=== PATIENT | female | born 1970 | race Caucasian/White ===

== ENCOUNTER 2025-07-20 16:36 | Emergency (ER) | payer SELFPAY ==
[2025-07-20 16:39] VITALS: BP 163/82
[2025-07-20 17:18] LABS: Urine Character Clear (Clear)
[2025-07-20 17:29] LABS: Hematocrit 35.4 % (37.0-47.0); Hemoglobin 11.8 g/dL (12.0-16.0); Mean Corp Hgb Conc. 33.3 g/dL (33.0-37.0); Mean Corpuscular Volume 81.8 fL (81.0-99.0); Nucleated Red Blood Cells % 0 %; Platelet Count 144 10^3/uL (130-400); Red Cell Dist. Width 13.8 % (11.5-14.5)
[2025-07-20 17:39] LABS: Urine Red Blood Cell 0-2 /HPF (0-2); Urine Squamous Cell >30 /LPF (Few)
[2025-07-20 17:56] LABS: ALT (SGPT) 17 U/L (0-35); AST (SGOT) 21 U/L (14-36); Albumin 4.4 g/dl (3.5-5.0); Alkaline Phosphatase 104 U/L (38-126); Blood Urea Nitrogen 17 mg/dl (7-17); Calcium 9.7 mg/dl (8.4-10.2); Carbon Dioxide 27 mmol/L (22-30); Chloride 105 mmol/L (98-107); Glucose 198 mg/dl (70-99); Lipase 140 U/L (23-300); Potassium 4.3 mmol/L (3.5-5.1); Sodium 139 mmol/L (135-145); Total Protein 7.3 g/dl (6.3-8.2); eGFR > 60.00
--- NOTE | 2025-07-20 18:46 | ED.GENMED ---
History of Present Illness
General
Chief Complaint: Flank Pain
Source: patient
Time Seen by Provider: 07/20/25 18:23
History of Present Illness
History of Present Illness:
54-year-old female with past medical history of hypertension, hyperlipidemia, insulin-dependent diabetes, pancreatic tumor presenting to the emergency department for evaluation of left-sided flank pain (triage note say right side) since this past
described to be a constant dull ache with intermittent sharper bursts of pain, pain radiating intermittently towards the left lower abdomen and intermittently during the 4 days has had chills and a tactile fever, today temp was 99.5 but did
take Motrin prior to arrival to the ER around 4 PM. Patient endorses nausea but no vomiting as well as dysuria and urinary urgency. Currently not on any antibiotics. No other presenting symptoms.
Past History
Past History
ED Past Medical History: HTN, Hypercholesterolemia and IDDM
ED Past Surgical History: and Gynecological
Social History
Tobacco: Non-smoker
Alcohol: None
Drug: None
Personal:
Living: with family
Review of Systems
Review of Systems
All Other Systems: ROS reviewed and negative except as documented in HPI and ROS
Phy Exam
Physical Exam
Physical Exam:
GENERAL: Alert , in no apparent distress
EYE: clear conjunctiva b/l
HEAD: NCAT
ENT: o/p clr, mmm.
CARDIAC: Regular rate and rhythm .
LUNGS: Clear breath sounds bilaterally, no acute respiratory distress, no wheezes/rales/rhonchi
ABDOMEN: Soft, without focal tenderness, no r/g, mild left CVA tenderness
NEUROLOGICAL: Alert and oriented
SKIN: Warm and dry, skin intact.
MUSCULOSKELETAL: No edema, well perfused.
PSYCH: Normal and appropriate interaction.
Scores
Heart Failure Risk
Heart Failure Risk Score: Not Applicable
Heart Score for Chest Pain Patients
STEMI patient?: Not applicable
Withdrawal Assessment of Alcohol
Withdrawal Assessment Completed?: Not applicable
Course
Orders/Labs/Results
Orders:
Orders
07/20/25 16:54
Complete Blood Count/With Diff Urgent
Comprehensive Metabolic Panel Urgent
Lipase Urgent
Urinalysis Reflex To Culture Urgent
Date Specimen was Collected: 07/20/25
Time Specimen was Collected: 16:43
Urine Microscopic Reflex Cult Urgent
Urine Culture Urgent
SHER Source: U
Specimen Description:
Date Specimen was Collected: 07/20/25
Time Specimen was Collected: 16:43
07/20/25 18:41
0.9% Sodium Chloride 1000 ml [Nss] 1,000 ml IV BOLUS
Ondansetron Injectable [Zofran] 4 mg IV NOW STA
07/20/25 18:42
CT Abd/pel Without Iv Or Oral Urgent
Comment:
Reason For Exam: flank pain, hx stones
07/20/25 18:58
CefTRIAXone [Rocephin] 1,000 mg IV NOW STA
Abnormal Lab Results
07/20/25
16:54
Hgb 11.8 L g/dL
(12.0-16.0)
Hct 35.4 L %
(37.0-47.0)
MPV 11.0 H fL
(7.4-10.4)
Abs Immat Gran (auto) 0.1 H 10^3/uL
(0-0.05)
Absolute Neuts (auto) 8.8 H 10^3/uL
(1.4-6.5)
Absolute Lymphs (auto) 1.0 L 10^3/uL
(1.2-3.4)
Immature Gran % 0.6 H %
(0-0.5)
Neutrophils % 84.5 H %
(42.2-75.2)
Lymphocytes % 9.1 L %
(20.5-51.1)
Glucose 198 H mg/dl
(70-99)
Ur Occult Blood Reflex 1+ A
(Negative)
Leukocyte Esterase Rfl 2+ A
(Negative)
Urine WBC (Reflex) 11-15 A /HPF
(0-5)
Urine Bacteria (Reflex) Moderate A
(Negative)
Urine Glucose 1+ A
(Negative)
Urine Albumin (Reflex) 1+ A
(Neg - Trace)
07/20/25 16:54
07/20/25 16:54
Vital Signs
Initial and Last Documented VS:
Initial Vital Signs
Temp Pulse Resp BP Pulse Ox
99.5 F 91 19 163/82 97
07/20/25 16:39 07/20/25 16:39 07/20/25 16:39 07/20/25 16:39 07/20/25 16:39
Last Documented Vital Signs
Temp Pulse Resp BP Pulse Ox
99.5 F 82 18 113/86 95
07/20/25 16:39 07/20/25 20:05 07/20/25 20:05 07/20/25 20:05 07/20/25 20:05
MDM/Problems Addressed
Differential Diagnosis Includes:
Pyelonephritis
Cystitis
Renal/ureteral colic
Kidney stone
Shingles
Musculoskeletal back pain
Viral syndrome
MDM/Problems Addressed:
54-year-old female presenting to the ER for evaluation of left-sided flank pain, tactile fevers, chills and nausea. Took Motrin prior to arrival, afebrile here. Labs and urine initiated in triage show no leukocytosis, unremarkable chemistry
outside of mild hyperglycemia as well as urinalysis showing 1+ microscopic hematuria, 2+ leukocytes and 11-15 WBCs however there is greater than 30 squamous cells and moderate bacteria signifying some degree of contamination. I do suspect that a
urinary tract infection is likely given patient is also experiencing dysuria and urgency. Given that she does have a history of kidney stones and her flank pain will still obtain a noncontrast CT scan to further evaluate. Disposition pending.
Patient declining anything for pain but will treat nausea with Zofran and IV fluids.
*Radiology
Radiology exam reviewed: radiology read reviewed
*Pulse Oximetry
SaO2: 97
Oxygen Mode of Delivery: Room air
Patient hypoxic: no
*Critical Care Note
Total Time (30-74mins, 75-104mins- exclusive of procedures): Not Applicable
Patient Management
Escalation/DeEscalation of care consider admission/obs:
Patient CT scan without any acute or emergent pathologies. She was treated with a dose of Rocephin for suspected urinary tract infection/possible early pyelonephritis. We did discuss inpatient versus outpatient treatment and ultimately patient
preferred to be discharged home. Prescription for cefpodoxime sent to pharmacy. Patient advised on return precautions to the ER but otherwise stable for discharge home.
ED Attending Note
-
Portions of this chart may have been created with voice recognition software.� Occasional wrong word or��sound alike� substitutions may have occurred due to the inherent limitations of voice recognition software.
Discharge Plan
Departure
Patient Disposition: Home (Routine Discharge)
Date of Disposition: 07/20/25
Time of Disposition: 19:54
Patient with high blood pressure during this ER visit?: Yes
Discharge Problem:
Urinary tract infection
Instructions: Urinary tract infection in adults - ED (DC)
Prescriptions:
New
cefpodoxime 200 mg tablet
200 mg PO BID 10 Days Qty: 20 0RF
Referrals:
Erin Markham CRNP [Family Provider, General]
Stand Alone Forms: Return to Work
Interventions
Interventions:
*Risk Screen - Suicide Last Done: 07/20/25 16:42
*General Assessment Last Done: 07/20/25 16:42
*Neglect/Abuse Screening Last Done: 07/20/25 16:42
*ED COVID-19 Vaccine History Last Done: 07/20/25 16:42
*ED Influenza Vaccine History Last Done: 07/20/25 16:42
*Nursing Disposition Last Done: 07/20/25 20:46
VI-Maepsj-Qxnofbxtnr Assessment Last Done: 07/20/25 18:30
ED-Female Genitourinary Assessment Last Done: 07/20/25 18:30
Discharge Date and Time
Discharge Date/Time: 07/20/25 20:46
Print Language: YEMENI
[2025-07-20] MEDS: NSS 1000 IV (19:15)
[2025-07-20] MEDS: ZOFRAN 4 MG IV (19:16)
[2025-07-20] MEDS: ROCEPHIN 1000 MG IV (19:18)
[2025-07-20 20:05] VITALS: BP 113/86
== END 2025-07-20 20:46 | disposition home or self-care (01) ==
LOC: EMR 16:36
PROVIDERS: EMERGENCY PHYSICIAN Emergency Medicine; FAMILY PHYSICIAN Nurse Practitioner Adult Health
DX: N39.0 Urinary tract infection, site not specified (principal); I10 Essential (primary) hypertension; E78.00 Pure hypercholesterolemia, unspecified; E11.65 Type 2 diabetes mellitus with hyperglycemia; Z79.4 Long term (current) use of insulin
CPT/HCPCS: 96374; 96375; 96361; 99284; 74176; 80053; 81003; 81015; 83690; 85025; 87086

== ENCOUNTER 2025-08-07 16:39 | Emergency (ER) | payer OTHER, SELFPAY ==
[2025-08-07 16:41] VITALS: BP 173/93
[2025-08-07 18:00] LABS: Glucose - Point of Care 473 mg/dl (70-99)
[2025-08-07 18:24] VITALS: BMI 43.4
[2025-08-07] MEDS: NSS 1000 IV ×2 (18:28→20:21)
[2025-08-07] MEDS: TORADOL 15 MG IV (18:28)
[2025-08-07 18:48] LABS: Venous Blood Gas B.E. 1.7 mmol/L (-4 to +4); Venous Blood Gas O2 Sat % 80.5 %
[2025-08-07 18:49] LABS: Hematocrit 32.7 % (37.0-47.0); Hemoglobin 11.0 g/dL (12.0-16.0); Mean Corp Hgb Conc. 33.6 g/dL (33.0-37.0); Mean Corpuscular Volume 79.8 fL (81.0-99.0); Nucleated Red Blood Cells % 0 %; Platelet Count 137 10^3/uL (130-400); Red Cell Dist. Width 14.2 % (11.5-14.5)
--- NOTE | 2025-08-07 18:56 | ED.GENMED ---
History of Present Illness
<MOHINDER Carpenter Last Filed: 08/08/25 07:25>
General
Chief Complaint: Fever
Source: patient
Exam Limitations: none
Time Seen by Provider: 08/07/25 17:32
Nursing documentation reviewed up to this point in time: agreed with
History of Present Illness
History of Present Illness:
see MDM
Past History
<MOHINDER Carpenter Last Filed: 08/08/25 07:25>
Past History
ED Past Medical History: HTN, Hypercholesterolemia and IDDM
ED Past Surgical History: and Gynecological
Social History
Tobacco: Non-smoker
Alcohol: None
Drug: None
Personal:
Living: with family
Phy Exam
<MOHINDER Carpenter Last Filed: 08/08/25 07:25>
Physical Exam
Physical Exam:
GENERAL: Alert , in no apparent distress, seems a little foggy; trouble answering
EYE: pupils equal and reactive
NECK: Supple
ENT: o/p clr, mmm.
CARDIAC: Regular rate and rhythm .
LUNGS: Clear breath sounds bilaterally, no acute respiratory distress, no wheezes/rales/rhonchi
ABDOMEN: Soft, without focal tenderness, no r/g, mild L cvat; normal bowel sounds
NEUROLOGICAL: Alert and oriented, slight brain fog; no focal neuro deficits
SKIN: Warm and dry, skin intact.
MUSCULOSKELETAL: No edema, well perfused. neg radha's sign
PSYCH: Normal and appropriate interaction.
Course
<MOHINDER Carpenter Last Filed: 08/08/25 07:25>
Orders/Labs/Results
Orders:
Orders
08/07/25 17:58
CT Abd/Pel (IV only)-DH only Urgent
Comment:
Reason For Exam: L flank pain, chills, 4.4 mm L renal stone
0.9% Sodium Chloride 1000 ml [Nss] 1,000 ml IV BOLUS
Ketorolac [Toradol] 15 mg IV NOW STA
08/07/25 18:36
BHB [B-Hydroxybutyrate] Urgent
Complete Blood Count/With Diff Urgent
Comprehensive Metabolic Panel Urgent
Lactic Acid Urgent
Lipase Urgent
Venous Blood Gas Urgent
%Oxygen/Room Air: 21
Blood Culture Q30M
SHER Source: Blood/Venous
Specimen Description:
Blood Culture Q30M
SHER Source: Blood/Venous
Specimen Description:
08/07/25 19:23
Add On- LAB Urgent
Tests Added?: LIPASE
08/07/25 19:24
Urinalysis Reflex To Culture Urgent
Date Specimen was Collected: 08/07/25
Time Specimen was Collected: 19:23
Urine Microscopic Reflex Cult Urgent
08/07/25 19:57
0.9% Sodium Chloride 1000 ml [Nss] 1,000 ml IV BOLUS
Abnormal Lab Results
08/07/25 08/07/25 08/07/25
17:59 18:36 19:24
RBC 4.10 L 10^6/uL
(4.20-5.40)
Hgb 11.0 L g/dL
(12.0-16.0)
Hct 32.7 L %
(37.0-47.0)
MCV 79.8 L fL
(81.0-99.0)
MCH 26.8 L pg
(27.0-31.0)
MPV 11.9 H fL
(7.4-10.4)
VBG pCO2 54 H mmHg
(35-48)
VBG HCO3 28.5 H mmol/L
(22-27)
Sodium 133 L mmol/L
(135-145)
BUN 29 H mg/dl
(7-17)
Glucose 438 H mg/dl
(70-99)
Ur Occult Blood Reflex 1+ A
(Negative)
Urine Bacteria (Reflex) Few A
(Negative)
Urine Glucose 4+ A
(Negative)
Urine Albumin (Reflex) 1+ A
(Neg - Trace)
B-Hydroxybutyrate 0.60 H mmol/L
(0.02-0.27)
POC Glucose 473 H* mg/dl
(70-99)
08/07/25
21:50
RBC
Hgb
Hct
MCV
MCH
MPV
VBG pCO2
VBG HCO3
Sodium
BUN
Glucose
Ur Occult Blood Reflex
Urine Bacteria (Reflex)
Urine Glucose
Urine Albumin (Reflex)
B-Hydroxybutyrate
POC Glucose 439 H mg/dl
(70-99)
08/07/25 18:36
08/07/25 18:36
Vital Signs
Initial and Last Documented VS:
Initial Vital Signs
Temp Pulse Resp BP Pulse Ox
36.7 C 94 20 173/93 96
08/07/25 16:41 08/07/25 16:41 08/07/25 16:41 08/07/25 16:41 08/07/25 16:41
Last Documented Vital Signs
Temp Pulse Resp BP Pulse Ox
36.7 C 80 18 118/78 96
08/07/25 16:41 08/07/25 22:00 08/07/25 22:00 08/07/25 22:00 08/07/25 22:00
<Gely Calderon NP - Last Filed: 08/07/25 22:42>
Orders/Labs/Results
Orders:
Orders
08/07/25 17:58
CT Abd/Pel (IV only)-DH only Urgent
Comment:
Reason For Exam: L flank pain, chills, 4.4 mm L renal stone
0.9% Sodium Chloride 1000 ml [Nss] 1,000 ml IV BOLUS
Ketorolac [Toradol] 15 mg IV NOW STA
08/07/25 18:36
BHB [B-Hydroxybutyrate] Urgent
Complete Blood Count/With Diff Urgent
Comprehensive Metabolic Panel Urgent
Lactic Acid Urgent
Lipase Urgent
Venous Blood Gas Urgent
%Oxygen/Room Air: 21
Blood Culture Q30M
SHER Source: Blood/Venous
Specimen Description:
Blood Culture Q30M
SHER Source: Blood/Venous
Specimen Description:
08/07/25 19:23
Add On- LAB Urgent
Tests Added?: LIPASE
08/07/25 19:24
Urinalysis Reflex To Culture Urgent
Date Specimen was Collected: 08/07/25
Time Specimen was Collected: 19:23
Urine Microscopic Reflex Cult Urgent
08/07/25 19:57
0.9% Sodium Chloride 1000 ml [Nss] 1,000 ml IV BOLUS
Abnormal Lab Results
08/07/25 08/07/25 08/07/25
17:59 18:36 19:24
RBC 4.10 L 10^6/uL
(4.20-5.40)
Hgb 11.0 L g/dL
(12.0-16.0)
Hct 32.7 L %
(37.0-47.0)
MCV 79.8 L fL
(81.0-99.0)
MCH 26.8 L pg
(27.0-31.0)
MPV 11.9 H fL
(7.4-10.4)
VBG pCO2 54 H mmHg
(35-48)
VBG HCO3 28.5 H mmol/L
(22-27)
Sodium 133 L mmol/L
(135-145)
BUN 29 H mg/dl
(7-17)
Glucose 438 H mg/dl
(70-99)
Ur Occult Blood Reflex 1+ A
(Negative)
Urine Bacteria (Reflex) Few A
(Negative)
Urine Glucose 4+ A
(Negative)
Urine Albumin (Reflex) 1+ A
(Neg - Trace)
B-Hydroxybutyrate 0.60 H mmol/L
(0.02-0.27)
POC Glucose 473 H* mg/dl
(70-99)
08/07/25
21:50
RBC
Hgb
Hct
MCV
MCH
MPV
VBG pCO2
VBG HCO3
Sodium
BUN
Glucose
Ur Occult Blood Reflex
Urine Bacteria (Reflex)
Urine Glucose
Urine Albumin (Reflex)
B-Hydroxybutyrate
POC Glucose 439 H mg/dl
(70-99)
08/07/25 18:36
08/07/25 18:36
Vital Signs
Initial and Last Documented VS:
Initial Vital Signs
Temp Pulse Resp BP Pulse Ox
36.7 C 94 20 173/93 96
08/07/25 16:41 08/07/25 16:41 08/07/25 16:41 08/07/25 16:41 08/07/25 16:41
Last Documented Vital Signs
Temp Pulse Resp BP Pulse Ox
36.7 C 80 18 118/78 96
08/07/25 16:41 08/07/25 22:00 08/07/25 22:00 08/07/25 22:00 08/07/25 22:00
<Elyssa Wallace PA-C - Last Filed: 08/08/25 07:25>
MDM/Problems Addressed
Differential Diagnosis Includes:
SEE MDM
MDM/Problems Addressed:
Note:
CHIEF COMPLAINT(S)
Recurrent abdominal and back pain with associated chills and fever.
HISTORY OF PRESENT ILLNESS
The patient is a 54-year-old female IDDM, who presents with complaints of recurrent abdominal and back pain accompanied by chills and fever. The symptoms were first noted at the beginning of July when the patient experienced severe chills and a
mild fever of 99�F, which led her to the emergency department. At that time, she was evaluated for a potential urinary tract infection and was given antibiotics, which partially relieved her symptoms though the chills persisted intermittently. The
patient describes her current pain as originating in the back, distinct from bladder pain, and has been enduring these symptoms for a few days now.
An ultrasound ordered routinely by her manager room (that she sees because of family history of kidney stones, she has never passed a stone herself) recently confirmed the presence of a 4.4 mm stone in the lower pole of the kidney on US 2 days ago.
The patient reports that she has been dealing with these symptoms since her visit in July and feels the chills and possible fever coming on again. She denies any vomiting or significant nausea except when febrile. The patient reports regular
pain but categorizes her pain now as different. The manager room oversees her care for kidney stone prevention and the management of electrolytes.
pt says she feels a little confused
accucheck read HI
PAST MEDICAL AND SURGICAL HISTORY
The patient has a history of recurring urinary tract infections and a history of a section.
CHRONIC MEDICAL CONDITIONS SIGNIFICANTLY AFFECTING CARE
The patient has a history of hypertension, which she mentions is well-controlled with medication. She also reports that her blood sugar is 'not doing that well,' indicating possible diabetes management challenges.
MEDICATIONS
Patient is on medication for blood pressure control.
REVIEW OF SYSTEMS
- Constitutional: Chills; Fever, subjective
- Gastrointestinal: Abdominal pain without nausea
- Genitourinary: History of kidney stones
- Musculoskeletal: Back pain
PHYSICAL EXAM
Nursing notes reviewed and vital signs reviewed.
see above
PROBLEM LIST
Acute Problems:
- Recurrent abdominal pain with chills and fever
- Possible exacerbation of kidney stones presence
Chronic Problems:
- Hypertension
- Possible diabetes or hyperglycemia
PLAN
- Further imaging of the abdomen to clarify the presence of any obstructive pathology or changes since the last ultrasound.
- Evaluation of the patients blood sugar levels for adequate diabetes management. - READ HI
- Close follow-up with nephrology to address kidney stone management and potential prevention.
DIFFERENTIAL DIAGNOSIS
The Differential Diagnosis includes, in no particular order and is not limited to:
1. Kidney stones
2. Urinary tract infection
3. Pyelonephritis
4. Renal colic
5. Gastroenteritis
6. Viral infection
7. Musculoskeletal pain
8. Abdominal aortic aneurysm
9. Pancreatitis
10. Appendicitis
54 y/o IDDM
not wearing her insulin pump currently because her dexcom wasn't working
here with L flank pain and chlils
has h/o outpatient screening US showing 4 mm L renal pole stone 2 day sago
then started with chilsl and pain
no obvious fever
no vomiting
since insulin pump off, her accucheck 400s
AG IS 4, PT IS NOT IN DKA
will give 2 liters fluid
wbc normal
insulin pump back on
will recheck sugar after 2L
pending CT
urine is equivocal
signed out to KELSI paredes.
<Elyssa Wallace PA-C - Last Filed: 08/08/25 07:25>
*Pulse Oximetry
SaO2: 96
Oxygen Mode of Delivery: Room air
<Gely Calderon NP - Last Filed: 08/07/25 22:42>
*Pulse Oximetry
Patient hypoxic: no
*Critical Care Note
Total Time (30-74mins, 75-104mins- exclusive of procedures): Not Applicable
<Gely Calderon NP - Last Filed: 08/07/25 22:42>
Update Note
Update Note:
CT report reviewed. Mural thickening of the bladder suspicious for cystitis. There is no evidence of obstructing ureteral calculus, normal appendix, no evidence of bowel obstruction. Discussed findings with patient. UA results reviewed. Will
wait for culture results. Patient is resting comfortably, in no distress. Will be discharging home, with close follow-up with PCP. She was given instructions on signs and symptoms to return to the emergency department and she is agreeable to this
plan.
ED Attending Note
<Elyssa Wallace PA-C - Last Filed: 08/08/25 07:25>
-
Portions of this chart may have been created with voice recognition software.� Occasional wrong word or��sound alike� substitutions may have occurred due to the inherent limitations of voice recognition software.
Discharge Plan
Departure
Patient Disposition: Home (Routine Discharge)
Date of Disposition: 08/07/25
Time of Disposition: 22:39
Patient with high blood pressure during this ER visit?: No
Condition: Good
Covid-19: Not Applicable
Discharge Problem:
Abdominal pain
Instructions: Abdominal pain in adults - ED (DC)
Prescriptions:
No Action
cefpodoxime 200 mg tablet
200 mg PO BID 10 Days Qty: 20 0RF
Referrals:
Erin Markham CRNP [Family Provider, General] - Follow up in 2-3 days
Stand Alone Forms: Return to Work
Activity Restrictions/Additional Instructions:
Return to the emergency department for any changes in/worsening of your symptoms.
Interventions
Interventions:
*Risk Screen - Suicide Last Done: 08/07/25 23:14
*General Assessment Last Done: 08/07/25 16:41
*Neglect/Abuse Screening Last Done: 08/07/25 23:14
*ED- Fall Risk Assessment Last Done: 08/07/25 18:24
*ED COVID-19 Vaccine History Last Done: 08/07/25 18:24
*ED Influenza Vaccine History Last Done: 08/07/25 18:24
*Nursing Disposition Last Done: 08/07/25 23:14
ED- Neurological Assessment Last Done: 08/07/25 22:07
ED-Skin Assessment Last Done: 08/07/25 22:07
Discharge Date and Time
Discharge Date/Time: 08/07/25 23:15
Print Language: JAPANESE
[2025-08-07 19:10] LABS: ALT (SGPT) 21 U/L (0-35); AST (SGOT) 21 U/L (14-36); Albumin 4.2 g/dl (3.5-5.0); Alkaline Phosphatase 122 U/L (38-126); Blood Urea Nitrogen 29 mg/dl (7-17); Calcium 9.4 mg/dl (8.4-10.2); Carbon Dioxide 29 mmol/L (22-30); Chloride 100 mmol/L (98-107); Estimated Creatinine Clearance 99 ml/min; Glucose 438 mg/dl (70-99); Potassium 4.0 mmol/L (3.5-5.1); Sodium 133 mmol/L (135-145); Total Protein 7.0 g/dl (6.3-8.2); eGFR > 60.00
[2025-08-07 19:41] LABS: Urine Character Clear (Clear)
[2025-08-07 19:43] LABS: Lipase 195 U/L (23-300)
[2025-08-07 19:54] LABS: Urine Red Blood Cell 0-2 /HPF (0-2); Urine Squamous Cell 0-2 /LPF (Few)
[2025-08-07 20:00] VITALS: BP 122/70
[2025-08-07 21:52] LABS: Glucose - Point of Care 439 mg/dl (70-99)
[2025-08-07 22:00] VITALS: BP 118/78
== END 2025-08-07 23:15 | disposition home or self-care (01) ==
LOC: EMR 16:39
PROVIDERS: Physician Assistant; EMERGENCY PHYSICIAN Emergency Medicine; FAMILY PHYSICIAN Nurse Practitioner Adult Health
DX: R10.9 Unspecified abdominal pain (principal); I10 Essential (primary) hypertension; E78.00 Pure hypercholesterolemia, unspecified; E11.9 Type 2 diabetes mellitus without complications; Z87.442 Personal history of urinary calculi; Z79.4 Long term (current) use of insulin
CPT/HCPCS: 99284; 96374; 96361; 74177; 80053; 81003; 81015; 82010; 82805; 82962; 83605; 83690; 85025; 87040; Q9967

== ENCOUNTER 2025-08-11 14:48 | Emergency (ER) | payer OTHER, SELFPAY ==
[2025-08-11 14:59] VITALS: BP 174/97
[2025-08-11 15:41] LABS: Hematocrit 35.7 % (37.0-47.0); Hemoglobin 12.1 g/dL (12.0-16.0); Mean Corp Hgb Conc. 33.9 g/dL (33.0-37.0); Mean Corpuscular Volume 78.3 fL (81.0-99.0); Nucleated Red Blood Cells % 0 %; Platelet Count 168 10^3/uL (130-400); Red Cell Dist. Width 13.9 % (11.5-14.5)
[2025-08-11 15:54] LABS: ALT (SGPT) 20 U/L (0-35); AST (SGOT) 21 U/L (14-36); Albumin 4.8 g/dl (3.5-5.0); Alkaline Phosphatase 126 U/L (38-126); Blood Urea Nitrogen 18 mg/dl (7-17); Calcium 9.6 mg/dl (8.4-10.2); Carbon Dioxide 28 mmol/L (22-30); Chloride 98 mmol/L (98-107); Glucose 390 mg/dl (70-99); Potassium 4.6 mmol/L (3.5-5.1); Sodium 135 mmol/L (135-145); Total Protein 8.2 g/dl (6.3-8.2); eGFR > 60.00
[2025-08-11 16:01] LABS: Urine Character Clear (Clear)
[2025-08-11 16:02] LABS: Urine White Cell 0-2 /HPF (0-5)
[2025-08-11 16:10] VITALS: BP 160/89
--- NOTE | 2025-08-11 17:04 | ED.GENMED ---
History of Present Illness
<Samantha Garcia PA-C - Last Filed: 08/11/25 22:23>
General
Chief Complaint: Flank Pain
Source: patient
Exam Limitations: none
Time Seen by Provider: 08/11/25 16:37
History of Present Illness
History of Present Illness:
54yoF with a history of insulin-dependent diabetes, hypertension, hyperlipidemia presenting for evaluation of chills. Patient has been seen in the ED twice within the last month for flank pain. She was initially seen on 07/20 and was prescribed
cefpodoxime for possible early pyelonephritis. Urine culture came back with mixed contaminants. She was again seen in the ED on 08/07 for recurrent abdominal and back pain with chills. Blood cultures were sent at this visit which are no growth x
72 hours. She had a CAT scan at her last [address] 4 days ago showed mild circumferential urinary bladder wall thickening. Patient reports ongoing left flank pain which varies to her left upper quadrant Since her last ED visit. She
started to have chills again today and her temperature was 99 so she decided to come back to the ED for evaluation. Her dysuria has resolved. No rash, joint swelling, shortness of breath, cough, URI symptoms, vomiting, diarrhea. Her mother had a
fever 2 days ago but she otherwise denies any sick contacts.
Past History
<Samantha Garcia PA-C - Last Filed: 08/11/25 22:23>
Past History
ED Past Medical History: HTN, Hypercholesterolemia and IDDM
ED Past Surgical History: and Gynecological
Social History
Tobacco: Non-smoker
Alcohol: None
Drug: None
Personal:
Living: with family
Phy Exam
<Samantha Garcia PA-C - Last Filed: 08/11/25 22:23>
General Physical Exam
General Presentation: no apparent distress
General Skin: warm and dry
General Habitus: normal
General Mental: alert
ENT Exam
ENT Exam: TM's normal, pharynx normal, neck supple and normocephalic
Cardiovascular Exam
Cardiovascular Exam: regular rate/rhythm
Pulmonary Exam
Pulmonary Exam: lungs clear, no respiratory distress, no rales, no crackles, no rhonchi and no wheezing
Gastrointestinal Exam
Gastrointestinal Exam: non tender, soft, non distended and other (+L CVA tenderness. No skin changes.)
Neurological Exam
Neurological Exam: alert
Tam Coma Scale
Eye Opening: Spontaneous
Verbal Response: Oriented
Motor Response: Obeys Commands
GCS Total Score: 15
Skin Exam
Skin Exam: normal color and warm/dry
Psychiatric Exam
Psychiatric Exam: normal mood/affect
Course
<Samantha Garcia PA-C - Last Filed: 08/11/25 22:23>
Orders/Labs/Results
Orders:
Orders
08/11/25 15:16
Complete Blood Count/With Diff Urgent
Comprehensive Metabolic Panel Urgent
Lipase Urgent
Comment: ADD ON
Urinalysis Reflex To Culture Urgent
Date Specimen was Collected: 08/11/25
Time Specimen was Collected: 14:58
Urine Microscopic Reflex Cult Urgent
Urine Culture Urgent
SHER Source: U
Specimen Description:
Date Specimen was Collected: 08/11/25
Time Specimen was Collected: 14:58
08/11/25 17:03
0.9% Sodium Chloride 1000 ml [Nss] 1,000 ml IV BOLUS
08/11/25 17:04
CR Chest - 2 Views Urgent
Comment:
Reason For Exam: fever
08/11/25 17:11
COVID-19 Antigen Urgent
Source: Nasal Swab
Lactate Level [Lactic Acid] Urgent
Influenza A+B Rapid Molecular Urgent
SHER Source: Nasal Swab
Specimen Description:
08/11/25 17:47
0.9% Sodium Chloride 1000 ml [Nss] 1,000 ml IV BOLUS
08/11/25 18:42
Add On- LAB Urgent
Tests Added?: lipase
08/11/25 18:53
Lactate Level [Lactic Acid] Urgent
08/11/25 19:12
Blood Culture Q30M
SHER Source: Blood/Venous
Specimen Description:
Blood Culture Q30M
SHER Source: Blood/Venous
Specimen Description:
08/11/25 19:51
Ondansetron Orally Disint [Zofran Odt (Orally Disintegrating)] 4 mg PO NOW STA
Abnormal Lab Results
08/11/25 08/11/25
15:16 17:11
Hct 35.7 L %
(37.0-47.0)
MCV 78.3 L fL
(81.0-99.0)
MCH 26.5 L pg
(27.0-31.0)
MPV 11.9 H fL
(7.4-10.4)
Abs Immat Gran (auto) 0.1 H 10^3/uL
(0-0.05)
Absolute Neuts (auto) 8.9 H 10^3/uL
(1.4-6.5)
Absolute Lymphs (auto) 1.1 L 10^3/uL
(1.2-3.4)
Neutrophils % 84.3 H %
(42.2-75.2)
Lymphocytes % 10.0 L %
(20.5-51.1)
BUN 18 H mg/dl
(7-17)
Glucose 390 H mg/dl
(70-99)
Lactic Acid 3.1 H mmol/L
(0.7-2.0)
Ur Occult Blood Reflex 2+ A
(Negative)
Urine RBC 3-6 A /HPF
(0-2)
Urine Bacteria (Reflex) Many A
(Negative)
Urine Glucose 4+ A
(Negative)
Urine Albumin (Reflex) 1+ A
(Neg - Trace)
08/11/25 15:16
08/11/25 15:16
Vital Signs
Initial and Last Documented VS:
Initial Vital Signs
Temp Pulse Resp Pulse Ox
99.4 F 101 20 99
08/11/25 14:53 08/11/25 14:53 08/11/25 14:53 08/11/25 14:53
Last Documented Vital Signs
Temp Pulse Resp BP Pulse Ox
98.8 F 85 18 126/65 96
08/11/25 19:56 08/11/25 19:56 08/11/25 19:56 08/11/25 19:56 08/11/25 19:56
<Jermain Vuong, DO - Last Filed: 08/11/25 19:53>
Orders/Labs/Results
Orders:
Orders
08/11/25 15:16
Complete Blood Count/With Diff Urgent
Comprehensive Metabolic Panel Urgent
Lipase Urgent
Comment: ADD ON
Urinalysis Reflex To Culture Urgent
Date Specimen was Collected: 08/11/25
Time Specimen was Collected: 14:58
Urine Microscopic Reflex Cult Urgent
Urine Culture Urgent
SHER Source: U
Specimen Description:
Date Specimen was Collected: 08/11/25
Time Specimen was Collected: 14:58
08/11/25 17:03
0.9% Sodium Chloride 1000 ml [Nss] 1,000 ml IV BOLUS
08/11/25 17:04
CR Chest - 2 Views Urgent
Comment:
Reason For Exam: fever
08/11/25 17:11
COVID-19 Antigen Urgent
Source: Nasal Swab
Lactate Level [Lactic Acid] Urgent
Influenza A+B Rapid Molecular Urgent
SHER Source: Nasal Swab
Specimen Description:
08/11/25 17:47
0.9% Sodium Chloride 1000 ml [Nss] 1,000 ml IV BOLUS
08/11/25 18:42
Add On- LAB Urgent
Tests Added?: lipase
08/11/25 18:53
Lactate Level [Lactic Acid] Urgent
08/11/25 19:12
Blood Culture Q30M
SHER Source: Blood/Venous
Specimen Description:
Blood Culture Q30M
SHER Source: Blood/Venous
Specimen Description:
08/11/25 19:51
Ondansetron Orally Disint [Zofran Odt (Orally Disintegrating)] 4 mg PO NOW STA
Abnormal Lab Results
08/11/25 08/11/25
15:16 17:11
Hct 35.7 L %
(37.0-47.0)
MCV 78.3 L fL
(81.0-99.0)
MCH 26.5 L pg
(27.0-31.0)
MPV 11.9 H fL
(7.4-10.4)
Abs Immat Gran (auto) 0.1 H 10^3/uL
(0-0.05)
Absolute Neuts (auto) 8.9 H 10^3/uL
(1.4-6.5)
Absolute Lymphs (auto) 1.1 L 10^3/uL
(1.2-3.4)
Neutrophils % 84.3 H %
(42.2-75.2)
Lymphocytes % 10.0 L %
(20.5-51.1)
BUN 18 H mg/dl
(7-17)
Glucose 390 H mg/dl
(70-99)
Lactic Acid 3.1 H mmol/L
(0.7-2.0)
Ur Occult Blood Reflex 2+ A
(Negative)
Urine RBC 3-6 A /HPF
(0-2)
Urine Bacteria (Reflex) Many A
(Negative)
Urine Glucose 4+ A
(Negative)
Urine Albumin (Reflex) 1+ A
(Neg - Trace)
08/11/25 15:16
08/11/25 15:16
Vital Signs
Initial and Last Documented VS:
Initial Vital Signs
Temp Pulse Resp Pulse Ox
99.4 F 101 20 99
08/11/25 14:53 08/11/25 14:53 08/11/25 14:53 08/11/25 14:53
Last Documented Vital Signs
Temp Pulse Resp BP Pulse Ox
98.8 F 85 18 126/65 96
08/11/25 19:56 08/11/25 19:56 08/11/25 19:56 08/11/25 19:56 08/11/25 19:56
<Samantha Garcia PA-C - Last Filed: 08/11/25 22:23>
MDM/Problems Addressed
Differential Diagnosis Includes:
54yoF here with chills. 3rd ED visit this month for L flank pain which persists. Previously underwent CT abdomen x2. Temperature 99.4 on arrival. Patient is non-toxic appearing. Differential diagnosis includes but is not limited to: viral illness,
pneumonia, UTI, pyelonephritis
Initial ED plan: Workup initiated in triage. White count normal. Glucose is 390. Bicarb normal and urine ketones negative. UA with many bacteria although only 0-2 WBCs present so no convincing evidence of UTI. Will check lactate, COVID/flu
swab, and chest x-ray. IV fluid bolus.
<Samantha Garcia PA-C - Last Filed: 08/11/25 22:23>
*Pulse Oximetry
SaO2: 99
Oxygen Mode of Delivery: Room air
Patient hypoxic: no
*Critical Care Note
Total Time (30-74mins, 75-104mins- exclusive of procedures): Not Applicable
<Samantha Garcia PA-C - Last Filed: 08/11/25 22:23>
Update Note
Update Note:
Lactate came back elevated at 3.1. Second fluid bolus ordered. Repeat lactate after fluids improved to 1.3. Viral testing negative and chest x-ray is clear. Repeat temperature is 98.8 and BP stable. Vital signs not consistent with sepsis.
Blood cultures sent for completeness. Patient also seen by Dr. Vuong. No indication for hospitalization and patient is also requesting to be discharged. She was advised to f/u closely with her PCP and ED return precautions reviewed. She
was discharged in stable condition.
ED Attending Note
<Samantha Garcia PA-C - Last Filed: 08/11/25 22:23>
-
Portions of this chart may have been created with voice recognition software.� Occasional wrong word or��sound alike� substitutions may have occurred due to the inherent limitations of voice recognition software.
<Jermain Vuong DO - Last Filed: 08/11/25 19:53>
ED Attending Note
Patient seen and examined by attending physician: Yes
I performed the substantive portion of visit, reviewed & personally made and approve the management plan that is documented in note by myself or KATHY.: Yes
ED Attending Note:
I evaluated the patient at bedside. Vital signs are not consistent with sepsis. However she was borderline tachycardic upon arrival and her lactic was initially elevated 3.1. However repeat lactic markedly improved after IV fluids were given down
to 1.3. Repeat heart rate down to 80s and she remains normotensive. Chest x-ray shows no sign of pneumonia. Urinalysis also shows no sign of infection. Repeat blood cultures obtained
Discharge Plan
Departure
Patient Disposition: Home (Routine Discharge)
Date of Disposition: 08/11/25
Time of Disposition: 19:40
Patient with high blood pressure during this ER visit?: No
Discharge Problem:
Chills
Instructions: Fever in adults - ED (DC)
Prescriptions:
No Action
cefpodoxime 200 mg tablet
200 mg PO BID 10 Days Qty: 20 0RF
Referrals:
UNKNOWN - PT NOT,INTERVIEWE [Family Provider]
Activity Restrictions/Additional Instructions:
Drink plenty of fluids and stay hydrated.
We will call you if your blood or urine cultures come back positive.
Please call your family doctor tomorrow to schedule a follow-up appointment. Return to the ER with any new or worsening symptoms.
Interventions
Interventions:
*Risk Screen - Suicide Last Done: 08/11/25 14:53
*General Assessment Last Done: 08/11/25 14:53
*Neglect/Abuse Screening Last Done: 08/11/25 14:53
*Nursing Disposition Last Done: 08/11/25 19:57
XO-Xfyujn-Qrvorzkarv Assessment Last Done: 08/11/25 18:05
Discharge Date and Time
Discharge Date/Time: 08/11/25 19:57
Print Language: PORTUGUESE
[2025-08-11] MEDS: NSS 1000 IV ×2 (17:12→17:58)
[2025-08-11 17:13] VITALS: BP 132/72
[2025-08-11 17:43] LABS: COVID-19 Antigen Negative (Negative)
[2025-08-11 19:28] LABS: Lipase 116 U/L (23-300)
[2025-08-11 19:44] VITALS: BP 126/65
[2025-08-11] MEDS: ZOFRAN ODT (ORALLY DISINTEGRATING) 4 MG PO (19:53)
[2025-08-11 19:56] VITALS: BP 126/65
== END 2025-08-11 19:57 | disposition home or self-care (01) ==
LOC: EMR 14:48
PROVIDERS: Physician Assistant; EMERGENCY PHYSICIAN Emergency Medicine
DX: R68.83 Chills (without fever) (principal); R10.A2 Flank pain, left side; R00.0 Tachycardia, unspecified; E11.9 Type 2 diabetes mellitus without complications; E78.00 Pure hypercholesterolemia, unspecified; I10 Essential (primary) hypertension; Z79.4 Long term (current) use of insulin; Z11.52 Encounter for screening for COVID-19
CPT/HCPCS: 96374; 96361; 99284; 71046; 80053; 81003; 81015; 83605; 83690; 85025; 87040; 87086; 87502; 87811